=== PATIENT | male | born 1980 | race Two or more races ===

== ENCOUNTER → 2018-12-13 | Outpatient (CLI) | payer SELFPAY | END | disposition home or self-care (01) | LOC: Rad HDHVI 12:51 | PROVIDERS: ATTEND Internal Medicine Cardiovascular Disease | DX: I51.7 Cardiomegaly (principal) | CPT/HCPCS: 71046 ==

== ENCOUNTER 2019-06-19 08:08 | Inpatient (IN) | payer MEDICAID ==
[~2019-06-19] VITALS: Ht 182.9 cm; Wt 117.6 kg
[~2019-06-19 08:08] MED LIST: ALPR0.5T PO; ATE50T PO; ESOM20CA PO; RIVA20TA PO
[2019-06-19] MEDS ORDERED: ceFAZolin 1GM/50ML 50 ML IV ONE (08:40)
[2019-06-19] MEDS ORDERED: LIDOCAINE 2%HCL (LOCAL ANESTH.) INJ 20ML MDV ONE ×3 (12:46→13:46)
[2019-06-19] MEDS ORDERED: VANCOMYCIN HCL 1000 MG VL ONE (13:06)
[2019-06-19] MEDS ORDERED: MIDAZOLAM HCL 1MG/1ML-2 ML VIAL ONE ×2 (13:11→14:19)
[2019-06-19] MEDS ORDERED: fentaNYL CITRATE 100 MCG/2 ML VL ONE (13:11)
[2019-06-19] MEDS ORDERED: diphenhdrAMINE HCL 50 MG/1 ML VL ONE (13:25)
[2019-06-19] MEDS ORDERED: methylPREDNISolone SOD SUCC 125 MG/2 ML VL ONE (13:25)
[2019-06-19] MEDS ORDERED: FAMOTIDINE (10MG/ML) 2ML VL IV ONE (13:25)
[2019-06-19] MEDS ORDERED: VANCOMYCIN 1GM/250ML 250 ML IV ONE (14:20)
[2019-06-19] MEDS ORDERED: HYDROcodone-ACET 5/325MG TAB PO PRN (15:30)
[2019-06-19] MEDS ORDERED: ALPRAZolam 0.5 MG TAB PO PRN (15:30)
[2019-06-19] MEDS ORDERED: MORPHINE SULF INJ 2 MG/ML SYRINGE 1ML IV PRN (15:30)
[2019-06-19] MEDS ORDERED: NITROGLYCERIN 0.4 MG SL TAB SL PRN (15:30)
[2019-06-19] MEDS ORDERED: ACETAMINOPHEN 325 MG TAB PO PRN (15:30)
[2019-06-19 17:30] VITALS: BP 144/77
--- NOTE | 2019-06-19 17:30 | NUR ---
Telemetry admit from [facility] admitted to Telemetry unit after SBAR received. Patient oriented to DANYEL SALAMANCA, primary RN, unit, room, bed, and unit policies regarding patient care and visiting hours. Patient now on continuous telemetry monitoring, tele box # [id number] and telemetry reading on arrival to unit is . Patient placed on bedside oxygen, weighed by bed scale and encouraged to call if they need something. All questions and concerns addressed, patient verbalized understanding.
--- NOTE | 2019-06-19 20:00 | NUR ---
Opening Shift Note Assumed care of patient, awake and alert. No S/S of distress/SOB or pain. Instructed on POC and to call for assist PRN, will continue to monitor for changes Q1hr and PRN.
[2019-06-19] MEDS: ceFAZolin 1GM/50ML 50 ML IV SCH (21:35)
[2019-06-19 22:00] VITALS: BP 107/65
[2019-06-19] MEDS ORDERED: ATENOLOL 50 MG TAB PO SCH (22:00)
[2019-06-20 05:00] VITALS: BP 139/70
[2019-06-20] MEDS: ceFAZolin 1GM/50ML 50 ML IV SCH (05:34)
--- NOTE | 2019-06-20 07:18 | NUR ---
Report given to Ramu Partida, patient is resting no distress.
--- NOTE | 2019-06-20 07:58 | NUR ---
PATIENT ROUNDS PATIENT IN BED, NO DISTRESS NOTED, BED IN LOWEST POSITION, SIDE RAIL UP X2 CALL LIGHT WITHIN REACH. WILL CONTINUE TO MONITOR AND INITIATE PLAN OF CARE. STUDENT ELECTRONIC INSTALLER SASCHA ASSISTING IN PATIENT CARE.
[2019-06-20 09:00] VITALS: BP 131/66
[2019-06-20] MEDS ORDERED: PANTOPRAZOLE 40 MG TAB PO SCH (10:00)
[2019-06-20] MEDS ORDERED: ATENOLOL 25 MG TAB PO SCH (10:00)
[2019-06-20 13:00] VITALS: BP 140/64
[2019-06-20 14:39] VITALS: BP 140/64
--- NOTE | 2019-06-20 15:50 | NUR ---
IV removal IV DC'd with clean sterile technique, catheter fully intact. Pressure dressing applied to site. Patient tolerated well. NOTE: TELE CLEANED AND RETURNED TO DOCTOR OF PODIATRY
--- NOTE | 2019-06-20 16:00 | NUR ---
Discharge instructions given as ordered. Encourage to follow up with PMD as instructed. All questions and concerns addressed. Patient verbalized understanding. Medication reconciliation form completed and copy given to patient. IV removed with catheter intact, pressure dressing applied. Telemetry unit returned to ICU. Patient ambulated to vehicle refused use of wheelchair with all personal belongings, accompanied by family member. No distress noted at time of departure.
== END 2019-06-20 16:00 | disposition home or self-care (01) | DRG 161 ==
LOC: CATH 08:08 → TELE-DOU 08:09 → TELE-EAST 18:39
PROVIDERS: ADMIT Internal Medicine Cardiovascular Disease; ATTEND Internal Medicine Cardiovascular Disease
PROC: 0JPT0PZ Removal of Cardiac Rhythm Related Device from Trunk Subcutaneous Tissue and Fascia, Open Approach (ICD-10-PCS; principal; 2019-06-19)
PROC: 02HK3KZ Insertion of Defibrillator Lead into Right Ventricle, Percutaneous Approach (ICD-10-PCS; 2019-06-19)
PROC: 0JH608Z Insertion of Defibrillator Generator into Chest Subcutaneous Tissue and Fascia, Open Approach (ICD-10-PCS; 2019-06-19)
PROC: 02PA3MZ Removal of Cardiac Lead from Heart, Percutaneous Approach (ICD-10-PCS; 2019-06-19)
DX: I47.2 Ventricular tachycardia (principal); I11.0 Hypertensive heart disease with heart failure; I50.32 Chronic diastolic (congestive) heart failure; Z86.74 Personal history of sudden cardiac arrest; E66.9 Obesity, unspecified; I42.2 Other hypertrophic cardiomyopathy; Z86.79 Personal history of other diseases of the circulatory system; Z95.810 Presence of automatic (implantable) cardiac defibrillator; Z82.49 Family history of ischemic heart disease and other diseases of the circulatory system; Z91.013 Allergy to seafood; Z68.35 Body mass index [BMI] 35.0-35.9, adult; Z79.899 Other long term (current) drug therapy
CPT/HCPCS: 71045; 93005; G0378; J0690; J2250; J3490

== ENCOUNTER → 2019-12-12 | Outpatient (CLI) | payer MEDICAID ==
[~2019-12-12] MED LIST changes: +POTASSIUM CHL 20 Meq TABLET PO ONE
[2019-12-12 15:07] LABS: Basophils # (auto) 0 uL; Basophils % (auto) 0.8 % (0.0-2.0); Eosinophils # (auto) 0.2 uL; Eosinophils % (auto) 3.6 % (0.0-7.0); Hemoglobin 13.9 g/dL (13.5-17.5); Lymphocytes # (auto) 2.1 uL; Lymphocytes % (auto) 35.5 % (10.0-50.0); Mean Corpuscular Hemoglobin 29.3 pg (28.0-32.0); Mean Corpuscular Hgb Conc. 33.9 g/dL (32.0-36.0); Mean Corpuscular Volume 86.4 fL (80.0-100.0); Monocytes # (auto) 0.5 uL; Neutrophils # (auto) 3.1 uL; Neutrophils % (auto) 52.1 % (37.0-80.0); Nucleated Red Blood Cells % 0.1 %; Platelet Count (auto) 165 10^3/uL (140-450); Red Blood Cells 4.75 10^6/uL (4.5-5.90); Red Cell Distribution Width 15.3 % (11.8-14.3); White Blood Cell 5.9 10^3/uL (4.4-10.8)
[2019-12-12 15:27] LABS: Calcium 9.2 mg/dL (8.5-10.1); Magnesium 2.1 mg/dL (1.6-2.6); Potassium 3.4 mmol/L (3.5-5.1)
[2019-12-12 15:29] LABS: BUN/Creatinine Ratio 18.2
[2019-12-12 16:35] VITALS: BP 122/70
== END | disposition home or self-care (01) ==
LOC: CHF HDHVI 14:38
PROVIDERS: ATTEND Internal Medicine Cardiovascular Disease
DX: I20.9 Angina pectoris, unspecified (principal); R07.9 Chest pain, unspecified; R00.2 Palpitations; Z79.899 Other long term (current) drug therapy
CPT/HCPCS: 36415; 80048; 83036; 83735; 83880; 84484; 85025; 93005; G0463

== ENCOUNTER → 2021-09-07 | Outpatient (CLI) | payer MEDICAID ==
[~2021-09-07] VITALS: Ht 182.9 cm; Wt 122.5 kg
[~2021-09-07] MED LIST changes: +CEPH-322 PO; -POTASSIUM CHL 20 Meq TABLET PO ONE
[2021-09-07 09:15] VITALS: BP 111/68
[2021-09-07 09:33] VITALS: BP 111/68
[2021-09-07 11:32] LABS: Basophils # (auto) 0.1 10 ^3/uL (0-0.2); Basophils % (auto) 1.6 % (0.0-2.0); Eosinophils # (auto) 0.2 10 ^3/uL (0-0.8); Eosinophils % (auto) 2.6 % (0.0-7.0); Hematocrit 44.4 % (41.0-53.0); Hemoglobin 14.5 g/dL (13.5-17.5); Lymphocytes # (auto) 1.8 10 ^3/uL (0.4-5.4); Lymphocytes % (auto) 28.3 % (10.0-50.0); Mean Corpuscular Hemoglobin 27.6 pg (28.0-32.0); Mean Corpuscular Hgb Conc. 32.6 g/dL (32.0-36.0); Mean Corpuscular Volume 84.8 fL (80.0-100.0); Monocytes # (auto) 0.6 10 ^3/uL (0-1.3); Monocytes % (auto) 9.7 % (0.0-12.0); Neutrophils # (auto) 3.6 10 ^3/uL (1.6-8.6); Neutrophils % (auto) 57.8 % (37.0-80.0); Nucleated Red Blood Cells % 0.2 %; Red Blood Cells 5.23 10^6/uL (4.5-5.90); Red Cell Distribution Width 15.1 % (11.8-14.3); White Blood Cell 6.2 10^3/uL (4.4-10.8)
[2021-09-07 11:45] LABS: INR 1.1 (0.9-1.15); Partial Thromboplastin Time 29.9 sec (23.6-33.0)
[2021-09-07 12:07] LABS: Potassium 4.4 mmol/L (3.5-5.1)
[2021-09-07 12:09] LABS: BUN/Creatinine Ratio 20.4
== END | disposition home or self-care (01) ==
LOC: CHF HDHVI 09:00
PROVIDERS: ATTEND Internal Medicine Cardiovascular Disease
DX: Z01.812 Encounter for preprocedural laboratory examination (principal); R94.31 Abnormal electrocardiogram [ECG] [EKG]; I44.7 Left bundle-branch block, unspecified; Z79.01 Long term (current) use of anticoagulants
CPT/HCPCS: 36415; 80048; 85025; 85610; 85730; 93005; G0463

== ENCOUNTER 2021-09-13 10:55 | Inpatient (IN) | payer MEDICAID ==
[2021-09-13] VITALS (10 sets, daily range): BP systolic 98–117; BP diastolic 61–77
[~2021-09-13] VITALS: Ht 182.9 cm; Wt 122.8 kg
[~2021-09-13 10:55] MED LIST changes: -ALPR0.5T PO; -ESOM20CA PO
[2021-09-13] MEDS ORDERED: diphenhdrAMINE HCL 50 MG/1 ML VL ONE (12:38)
[2021-09-13] MEDS ORDERED: methylPREDNISolone SOD SUCC 125 MG/2 ML VL ONE (12:38)
[2021-09-13] MEDS ORDERED: MIDAZOLAM HCL 2MG/2ML 2ml VIAL (1mg/ml) ONE (12:39)
[2021-09-13] MEDS ORDERED: fentaNYL CITRATE 100 MCG/2 ML VL ONE (12:39)
[2021-09-13] MEDS ORDERED: VANCOMYCIN 1GM/250ML 250 ML IV ONE (12:39)
[2021-09-13] MEDS ORDERED: VANCOMYCIN HCL 1000 MG VL ONE ×2 (12:40→13:51)
[2021-09-13] MEDS ORDERED: FAMOTIDINE (10MG/ML) 2ML VL IV ONE (12:40)
[2021-09-13] MEDS ORDERED: LIDOCAINE 2%HCL (LOCAL ANESTH.) INJ 20ML MDV ONE (12:46)
[2021-09-13] MEDS ORDERED: ceFAZolin 1GM VL ONE (13:51)
[2021-09-13] MEDS ORDERED: ACETAMINOPHEN 500 MG TAB PO PRN (14:30)
[2021-09-13] MEDS ORDERED: MORPHINE SULFATE INJECTION 2 MG/ML SYRG IV PRN (14:30)
[2021-09-13] MEDS ORDERED: NITROGLYCERIN 0.4 MG SL TAB SL PRN (14:30)
[2021-09-13] MEDS ORDERED: ONDANSETRON HCL 4 MG/2 ML VIAL IV PRN (14:30)
[2021-09-13] MEDS ORDERED: ceFAZolin 1GM/50ML 50 ML IV SCH (15:00)
[2021-09-13] MEDS: SODIUM CHLORIDE 0.9% 1,000 ML IV SCH (15:14)
[2021-09-13] MEDS: ceFAZolin 1GM/50ML 50 ML IV SCH ×2 (17:38→22:49)
[2021-09-14] MEDS ORDERED: VANCOMYCIN 1GM/250ML 250 ML IV ONE (00:01)
[2021-09-14] MEDS: SODIUM CHLORIDE 0.9% 1,000 ML IV SCH ×2 (00:45→12:29)
[2021-09-14 05:00] VITALS: BP 121/56
[2021-09-14] MEDS: ceFAZolin 1GM/50ML 50 ML IV SCH (06:42)
[2021-09-14 09:00] VITALS: BP 104/69
[2021-09-14 13:00] VITALS: BP 101/55
[2021-09-14] MEDS ORDERED: VANCOMYCIN 1GM/250ML 250 ML IV SCH (14:00)
[2021-09-14 17:00] VITALS: BP 101/52
[2021-09-14 18:57] VITALS: BP 101/52
== END 2021-09-14 20:14 | disposition home or self-care (01) | DRG 180 ==
LOC: CATH 10:55 → TELE 14:16 → TELE-WESTW 17:14
PROVIDERS: ADMIT Internal Medicine Cardiovascular Disease; ATTEND Internal Medicine Cardiovascular Disease
PROC: 0JPT0PZ Removal of Cardiac Rhythm Related Device from Trunk Subcutaneous Tissue and Fascia, Open Approach (ICD-10-PCS; principal; 2021-09-13)
DX: T82.7XXA Infection and inflammatory reaction due to other cardiac and vascular devices, implants and grafts, initial encounter (principal); I42.2 Other hypertrophic cardiomyopathy; Y83.1 Surgical operation with implant of artificial internal device as the cause of abnormal reaction of the patient, or of later complication, without mention of misadventure at the time of the procedure; Z20.822 Contact with and (suspected) exposure to COVID-19; Z91.013 Allergy to seafood
CPT/HCPCS: 33241; 33244; 99152; 99153; G0378; J0690; J2250; J3490

== ENCOUNTER → 2021-09-21 | Outpatient (CLI) | payer MEDICAID | END | disposition home or self-care (01) | LOC: Rad HDHVI 13:40 | PROVIDERS: ATTEND Internal Medicine Cardiovascular Disease | DX: I42.2 Other hypertrophic cardiomyopathy (principal); I05.0 Rheumatic mitral stenosis; I35.0 Nonrheumatic aortic (valve) stenosis | CPT/HCPCS: 93306 ==

== ENCOUNTER → 2021-10-18 | Outpatient (CLI) | payer MEDICAID ==
[2021-10-18 15:23] LABS: Basophils # (auto) 0 10 ^3/uL (0-0.2); Basophils % (auto) 0.8 % (0.0-2.0); Eosinophils # (auto) 0.3 10 ^3/uL (0-0.8); Eosinophils % (auto) 4.8 % (0.0-7.0); Hematocrit 42.5 % (41.0-53.0); Lymphocytes # (auto) 1.3 10 ^3/uL (0.4-5.4); Lymphocytes % (auto) 22.9 % (10.0-50.0); Mean Corpuscular Hemoglobin 27.6 pg (28.0-32.0); Mean Corpuscular Hgb Conc. 32.9 g/dL (32.0-36.0); Mean Corpuscular Volume 83.8 fL (80.0-100.0); Monocytes # (auto) 0.7 10 ^3/uL (0-1.3); Monocytes % (auto) 12.2 % (0.0-12.0); Neutrophils # (auto) 3.4 10 ^3/uL (1.6-8.6); Neutrophils % (auto) 59.3 % (37.0-80.0); Red Blood Cells 5.08 10^6/uL (4.5-5.90); Red Cell Distribution Width 15.1 % (11.8-14.3); White Blood Cell 5.8 10^3/uL (4.4-10.8)
[2021-10-18 15:24] LABS: Urine Blood Negative /uL (Negative); Urine Specific Gravity 1.027 (1.001-1.035)
[2021-10-18 15:29] LABS: Calcium 9.5 mg/dL (8.5-10.1); Magnesium 2.5 mg/dL (1.6-2.6); Potassium 4.4 mmol/L (3.5-5.1)
[2021-10-18 15:35] LABS: INR 1.32 (0.9-1.15)
[2021-10-18 15:36] LABS: Albumin 4.2 g/dL (3.4-5.0); BUN/Creatinine Ratio 18.1; Bilirubin, Total 1.4 mg/dL (0.2-1.0); Phosphorus 3.5 mg/dL (2.5-4.90); Total Protein 8.6 g/dL (6.4-8.2)
== END | disposition home or self-care (01) ==
LOC: LAB 14:01
PROVIDERS: ATTEND Internal Medicine Cardiovascular Disease
DX: Z01.812 Encounter for preprocedural laboratory examination (principal)
CPT/HCPCS: 36415; 80053; 80061; 81003; 83036; 83735; 84100; 85025; 85610; 85730

== ENCOUNTER → 2021-10-19 | Outpatient (CLI) | payer MEDICAID | END | disposition home or self-care (01) | LOC: Rad HDHVI 14:09 | PROVIDERS: ATTEND Internal Medicine Cardiovascular Disease | DX: Z01.811 Encounter for preprocedural respiratory examination (principal); I51.7 Cardiomegaly; Z95.0 Presence of cardiac pacemaker | CPT/HCPCS: 71046 ==

== ENCOUNTER → 2021-11-22 | Outpatient (CLI) | payer MEDICAID | END | disposition home or self-care (01) | LOC: Rad HDHVI 11:57 | PROVIDERS: ATTEND Internal Medicine Cardiovascular Disease | DX: I51.7 Cardiomegaly (principal) | CPT/HCPCS: 71046 ==

== ENCOUNTER → 2022-05-29 | Outpatient (CLI) | payer MEDICAID | END | disposition home or self-care (01) | LOC: Rad HDHVI 10:24 | PROVIDERS: ATTEND Internal Medicine Cardiovascular Disease | DX: I11.9 Hypertensive heart disease without heart failure (principal); R07.89 Other chest pain | CPT/HCPCS: 93306 ==

== ENCOUNTER 2022-06-09 12:00 | Emergency (ER) | payer MEDICAID ==
[~2022-06-09] VITALS: Ht 182.9 cm; Wt 123.6 kg
[2022-06-09 12:02] VITALS: BP 132/79
[2022-06-09 13:05] LABS: Basophils # (auto) 0.1 10 ^3/uL (0-0.2); Basophils % (auto) 0.8 % (0.0-2.0); Eosinophils # (auto) 0.1 10 ^3/uL (0-0.8); Eosinophils % (auto) 1.6 % (0.0-7.0); Hematocrit 41.2 % (41.0-53.0); Hemoglobin 13.5 g/dL (13.5-17.5); Lymphocytes # (auto) 1.3 10 ^3/uL (0.4-5.4); Lymphocytes % (auto) 18.6 % (10.0-50.0); Mean Corpuscular Hemoglobin 27.1 pg (28.0-32.0); Mean Corpuscular Hgb Conc. 32.7 g/dL (32.0-36.0); Mean Corpuscular Volume 82.9 fL (80.0-100.0); Monocytes # (auto) 0.5 10 ^3/uL (0-1.3); Monocytes % (auto) 7.6 % (0.0-12.0); Neutrophils # (auto) 4.9 10 ^3/uL (1.6-8.6); Neutrophils % (auto) 71.4 % (37.0-80.0); Nucleated Red Blood Cells % 0.1 %; Red Blood Cells 4.97 10^6/uL (4.5-5.90); Red Cell Distribution Width 15.2 % (11.8-14.3); White Blood Cell 6.9 10^3/uL (4.4-10.8)
[2022-06-09 13:25] LABS: INR 1.41 (0.9-1.15); Partial Thromboplastin Time 37.5 sec (24.6-33.4)
[2022-06-09 13:39] LABS: Albumin 4.3 g/dL (3.4-5.0); Calcium 9.5 mg/dL (8.5-10.1); Magnesium 2.2 mg/dL (1.6-2.6); Potassium 3.6 mmol/L (3.5-5.1)
[2022-06-09 13:42] LABS: BUN/Creatinine Ratio 16.5; Bilirubin, Total 1.4 mg/dL (0.2-1.0); Total Protein 8.5 g/dL (6.4-8.2)
[2022-06-09] MEDS ORDERED: ASPirin 325 MG TAB PO ONE (15:45)
== END 2022-06-09 18:18 | disposition left against medical advice (07) ==
LOC: ER 12:05
DX: R77.8 Other specified abnormalities of plasma proteins (principal); I42.1 Obstructive hypertrophic cardiomyopathy; F41.9 Anxiety disorder, unspecified; Z45.02 Encounter for adjustment and management of automatic implantable cardiac defibrillator
CPT/HCPCS: 36415; 71045; 80053; 83735; 83880; 84484; 85025; 85610; 85730; 93005

== ENCOUNTER → 2022-06-13 | Outpatient (CLI) | payer MEDICAID ==
[~2022-06-13] MED LIST changes: +MAGNESIUM OXIDE 400 MG TAB ONE; +MAGNESIUM OXIDE 400 MG TAB PO ONE; +POTASSIUM CHL 20 Meq TABLET PO ONE
[2022-06-13 10:58] VITALS: BP 120/77
[2022-06-13 11:15] VITALS: BP 110/64
[2022-06-13 12:33] LABS: BUN/Creatinine Ratio 17.4; Calcium 9.1 mg/dL (8.5-10.1); Magnesium 2.3 mg/dL (1.6-2.6); Potassium 3.7 mmol/L (3.5-5.1)
[2022-06-13 13:10] VITALS: BP 103/68
== END | disposition home or self-care (01) ==
LOC: CHF HDHVI 11:13
PROVIDERS: ATTEND Internal Medicine Cardiovascular Disease
DX: I44.7 Left bundle-branch block, unspecified (principal); I48.91 Unspecified atrial fibrillation; R94.31 Abnormal electrocardiogram [ECG] [EKG]; I42.1 Obstructive hypertrophic cardiomyopathy; I10 Essential (primary) hypertension; E78.5 Hyperlipidemia, unspecified; I51.7 Cardiomegaly
CPT/HCPCS: 36415; 80048; 83735; 84484; 93005; 93306; G0463

== ENCOUNTER → 2022-06-16 | Outpatient (CLI) | payer MEDICAID ==
[~2022-06-16] MED LIST changes: -MAGNESIUM OXIDE 400 MG TAB ONE; -MAGNESIUM OXIDE 400 MG TAB PO ONE; -POTASSIUM CHL 20 Meq TABLET PO ONE
== END | disposition home or self-care (01) ==
LOC: CHF HDHVI 09:07
PROVIDERS: ATTEND Internal Medicine Cardiovascular Disease
DX: I20.9 Angina pectoris, unspecified (principal)
CPT/HCPCS: 36415; 84484

== ENCOUNTER → 2022-06-27 | Outpatient (CLI) | payer MEDICAID ==
[~2022-06-27] MED LIST changes: +ALPR0.25 PO; +ATEN-60 PO; +ESOM5GRA PO; +SUCR1TAB22 PO
== END | disposition home or self-care (01) ==
LOC: Rad HDHVI 10:34
PROVIDERS: ATTEND Internal Medicine Cardiovascular Disease
DX: R07.89 Other chest pain (principal); R00.2 Palpitations
CPT/HCPCS: 93306

== ENCOUNTER → 2022-07-14 | Outpatient (CLI) | payer MEDICAID ==
[2022-07-14 10:05] VITALS: BP 104/68
[2022-07-14 10:10] VITALS: BP 104/68
[2022-07-14 12:00] LABS: Basophils # (auto) 0 10 ^3/uL (0-0.2); Eosinophils # (auto) 0.2 10 ^3/uL (0-0.8); Eosinophils % (auto) 3.9 % (0.0-7.0); Hematocrit 42.9 % (41.0-53.0); Hemoglobin 13.8 g/dL (13.5-17.5); Lymphocytes # (auto) 1.4 10 ^3/uL (0.4-5.4); Lymphocytes % (auto) 27.8 % (10.0-50.0); Mean Corpuscular Hemoglobin 27.3 pg (28.0-32.0); Mean Corpuscular Hgb Conc. 32.1 g/dL (32.0-36.0); Mean Corpuscular Volume 85.1 fL (80.0-100.0); Monocytes # (auto) 0.4 10 ^3/uL (0-1.3); Monocytes % (auto) 8.7 % (0.0-12.0); Neutrophils # (auto) 2.9 10 ^3/uL (1.6-8.6); Neutrophils % (auto) 58.6 % (37.0-80.0); Nucleated Red Blood Cells % 0.1 %; Red Blood Cells 5.04 10^6/uL (4.5-5.90); Red Cell Distribution Width 14.3 % (11.8-14.3); White Blood Cell 4.9 10^3/uL (4.4-10.8)
[2022-07-14 12:15] LABS: Calcium 8.9 mg/dL (8.5-10.1); Potassium 4.1 mmol/L (3.5-5.1)
[2022-07-14 12:17] LABS: BUN/Creatinine Ratio 21.1
[2022-07-14 12:18] LABS: INR 1.4 (0.9-1.15); Partial Thromboplastin Time 43.7 sec (24.6-33.4)
== END | disposition home or self-care (01) ==
LOC: Rad HDHVI 09:53
PROVIDERS: ATTEND Internal Medicine Cardiovascular Disease
DX: Z01.818 Encounter for other preprocedural examination (principal); R79.1 Abnormal coagulation profile; I48.91 Unspecified atrial fibrillation; Z95.0 Presence of cardiac pacemaker
CPT/HCPCS: 36415; 71046; 80048; 85025; 85610; 85730; G0463

== ENCOUNTER 2022-07-18 10:57 | Day surgery (SDC) | payer MEDICAID ==
[2022-07-18] VITALS (7 sets, daily range): BP systolic 99–116; BP diastolic 65–75
[2022-07-18] MEDS ORDERED: methylPREDNISolone SOD SUCC 125 MG/2 ML VL ONE (13:17)
[2022-07-18] MEDS ORDERED: ANGIOMAX 250 MG VIAL IV ONE (13:17)
[2022-07-18] MEDS ORDERED: fentaNYL CITRATE 100 MCG/2 ML VL ONE (13:17)
[2022-07-18] MEDS ORDERED: SODIUM CHL 0.9% 0 ML ONE (13:18)
[2022-07-18] MEDS ORDERED: MIDAZOLAM HCL 2MG/2ML 2ml VIAL (1mg/ml) ONE (13:18)
[2022-07-18] MEDS ORDERED: IOHEXOL 350 MG/ML 100ML IJ ONE (13:20)
== END 2022-07-18 15:50 | disposition home or self-care (01) ==
LOC: CATH 10:57
PROVIDERS: ATTEND Internal Medicine Cardiovascular Disease
DX: R07.89 Other chest pain (principal); I42.2 Other hypertrophic cardiomyopathy; I48.0 Paroxysmal atrial fibrillation; G47.30 Sleep apnea, unspecified; Z95.810 Presence of automatic (implantable) cardiac defibrillator; Z20.822 Contact with and (suspected) exposure to COVID-19
CPT/HCPCS: 93458; C1760; C1894; J2250; J2930; J3010; Q9967; U0003; 99152

== ENCOUNTER → 2022-07-31 | Outpatient (CLI) | payer MEDICAID ==
[~2022-07-31] MED LIST changes: -ATE50T PO; -CEPH-322 PO
== END | disposition home or self-care (01) ==
LOC: Rad HDHVI 09:48
PROVIDERS: ATTEND Internal Medicine Cardiovascular Disease
DX: I34.0 Nonrheumatic mitral (valve) insufficiency (principal); I11.9 Hypertensive heart disease without heart failure; Z95.0 Presence of cardiac pacemaker
CPT/HCPCS: 93306

== ENCOUNTER → 2022-08-21 | Outpatient (CLI) | payer MEDICAID ==
[~2022-08-21] MED LIST changes: +READI-CAT 2 (BARIUM SULF)(VANILLA SMOOTHIE) 450ML ONE
== END | disposition home or self-care (01) ==
LOC: Rad HDHVI 09:19
PROVIDERS: ATTEND Internal Medicine Cardiovascular Disease
DX: K76.9 Liver disease, unspecified (principal); R10.9 Unspecified abdominal pain
CPT/HCPCS: 74176

== ENCOUNTER → 2022-08-31 | Outpatient (CLI) | payer MEDICAID ==
[~2022-08-31] MED LIST changes: -READI-CAT 2 (BARIUM SULF)(VANILLA SMOOTHIE) 450ML ONE
== END | disposition home or self-care (01) ==
LOC: Rad HDHVI 08:42
PROVIDERS: ATTEND Internal Medicine Cardiovascular Disease
DX: I11.9 Hypertensive heart disease without heart failure (principal); R06.02 Shortness of breath
CPT/HCPCS: 93306

== ENCOUNTER → 2022-11-14 | Outpatient (CLI) | payer MEDICAID | END | disposition home or self-care (01) | LOC: Rad HDHVI 14:26 | PROVIDERS: ATTEND Internal Medicine Cardiovascular Disease | DX: I11.9 Hypertensive heart disease without heart failure (principal); I34.0 Nonrheumatic mitral (valve) insufficiency; R06.02 Shortness of breath | CPT/HCPCS: 93306 ==

== ENCOUNTER → 2023-01-11 | Outpatient (CLI) | payer MEDICAID ==
[2023-01-11 11:40] VITALS: BP 113/71
== END | disposition home or self-care (01) ==
LOC: Rad HDHVI 10:27
PROVIDERS: ATTEND Internal Medicine Cardiovascular Disease
DX: I44.7 Left bundle-branch block, unspecified (principal); R94.31 Abnormal electrocardiogram [ECG] [EKG]; I34.0 Nonrheumatic mitral (valve) insufficiency; I51.7 Cardiomegaly; R00.2 Palpitations; R06.02 Shortness of breath; I42.1 Obstructive hypertrophic cardiomyopathy
CPT/HCPCS: 93005; 93306; G0463

== ENCOUNTER → 2023-02-15 | Outpatient (CLI) | payer MEDICAID | END | disposition home or self-care (01) | LOC: Rad HDHVI 10:58 | PROVIDERS: ATTEND Internal Medicine Cardiovascular Disease | DX: I10 Essential (primary) hypertension (principal); R06.02 Shortness of breath | CPT/HCPCS: 93306 ==

== ENCOUNTER → 2024-04-02 | Outpatient (CLI) | payer MEDICAID ==
[~2024-04-02] MED LIST changes: +IOHEXOL 350 MG/ML 100ML IJ ONE; -SUCR1TAB22 PO; +SUCR1TAB31 PO
[2024-04-02 10:30] VITALS: BP 106/67; PULSE 63; RESP 16; O2SAT 97
[2024-04-02] MEDS: diphenhdrAMINE HCL 50 MG/1 ML VL IV ONE (10:30)
[2024-04-02] MEDS: methylPREDNISolone SOD SUCC 125 MG/2 ML VL IV ONE (10:30)
[2024-04-02] MEDS: methylPREDNISolone SOD SUCC 125 MG/2 ML VL ONE (10:42)
[2024-04-02] MEDS: diphenhdrAMINE HCL 50 MG/1 ML VL ONE (10:43)
[2024-04-02 12:02] VITALS: BP 112/74; PULSE 59; RESP 16; O2SAT 97
== END | disposition home or self-care (01) ==
LOC: Rad HDHVI 09:54
PROVIDERS: ATTEND Internal Medicine Cardiovascular Disease
DX: M79.601 Pain in right arm (principal); I10 Essential (primary) hypertension; I48.0 Paroxysmal atrial fibrillation; E78.5 Hyperlipidemia, unspecified; F41.9 Anxiety disorder, unspecified; Z95.0 Presence of cardiac pacemaker
CPT/HCPCS: 93971; 96374; 96375; G0463; J1200; J2919; Q9967

== ENCOUNTER → 2025-06-02 | Outpatient (CLI) | payer MEDICAID ==
[~2025-06-02] MED LIST changes: -IOHEXOL 350 MG/ML 100ML IJ ONE
== END | disposition home or self-care (01) ==
LOC: Rad HDHVI 10:02
PROVIDERS: ATTEND Internal Medicine Cardiovascular Disease
DX: I34.0 Nonrheumatic mitral (valve) insufficiency (principal); I11.9 Hypertensive heart disease without heart failure; I42.1 Obstructive hypertrophic cardiomyopathy
CPT/HCPCS: 93306

== ENCOUNTER 2025-06-03 08:59 | Outpatient (CLI) | payer MEDICAID ==
[2025-06-03 09:04] VITALS: BP 129/84; PULSE 110; RESP 16; O2SAT 93
[2025-06-03] MEDS ORDERED: READI-CAT 2 (BARIUM SULF)(VANILLA SMOOTHIE) 450ML ONE (09:08)
[2025-06-03] MEDS ORDERED: IOHEXOL 350 MG/ML 100ML IJ ONE (09:09)
[2025-06-03] MEDS: diphenhdrAMINE HCL 50 MG/1 ML VL ONE (09:32)
[2025-06-03] MEDS: methylPREDNISolone SOD SUCC 125 MG/2 ML VL ONE (09:32)
[2025-06-03] MEDS: diphenhdrAMINE HCL 50 MG/1 ML VL IV ONE (09:57)
[2025-06-03] MEDS: methylPREDNISolone SOD SUCC 125 MG/2 ML VL IV ONE (09:58)
[2025-06-03 10:26] VITALS: BP 120/83; PULSE 100; RESP 16; O2SAT 93
--- NOTE | 2025-06-03 10:52 | DVH ---
CT CT ABD PELVIS W CON-ORAL IV INDICATION: : 45 old Male ABD PAIN EXAM DATE: 06/03/2025 09:58 AM COMPARISON: None RADIATION DOSE: CTDIvol: 28.33 mGy, DLP: 1571.74 mGy*cm PROCEDURE: Helical CT images were obtained of the abdomen and pelvis with IV contrast Sagittal and co angeli reconstructions are provided. ORAL CONTRAST: yes ADDITIONAL IMAGES / REFORMATS: None All CT sca ns at this medical facility are performed using dose modulation techniques as appropriate to a perfor med exam including the following: Automated exposure control was utilized; adjustment of the MA and/o r KV according to patient size; and use of iterative reconstruction technique. FINDINGS: LUNG BASE: Mild bibasilar atelectasis. LIVER: Normal. GALLBLADDER AND BILIARY TREE: No calcified gallstones. Normal caliber wall. No intra- or extrahepatic biliary ductal dilation. PANCREAS: Normal. SPLEEN: Normal. BOWEL: Normal. Normal appendix. ADRENALS: Normal. KIDNEYS AND URETER: Normal. BLADDER: Normal. REPRODUCTIVE ORGANS: Normal. LYMPH NODES:No lymphadenopathy. PERITONEUM: No ascites or free air. No other fluid collection. VESSELS: Scattered atherosclerotic calcifications are noted. RETROPERITONEUM: Normal. ABDOMINAL WALL: Normal. BONES: Scattered osseous degenerative changes are noted. IMPRESSION: No acute intraabdominal abnormality.
== END 2025-06-03 17:00 | disposition home or self-care (01) ==
LOC: Rad HDHVI 08:59
PROVIDERS: ATTEND Internal Medicine Cardiovascular Disease
DX: K80.20 Calculus of gallbladder without cholecystitis without obstruction (principal); R14.0 Abdominal distension (gaseous); I11.9 Hypertensive heart disease without heart failure; I34.0 Nonrheumatic mitral (valve) insufficiency; I42.1 Obstructive hypertrophic cardiomyopathy; F41.9 Anxiety disorder, unspecified; E78.5 Hyperlipidemia, unspecified; I48.0 Paroxysmal atrial fibrillation; Z95.0 Presence of cardiac pacemaker; Z29.9 Encounter for prophylactic measures, unspecified; Z79.899 Other long term (current) drug therapy
CPT/HCPCS: 74177; 96374; 96375; G0463; J1200; J2919; Q9967

== ENCOUNTER 2025-06-26 09:09 | Outpatient (CLI) | payer MEDICAID ==
[~2025-06-26] VITALS: Ht 182.9 cm; Wt 131.5 kg
[2025-06-26] MEDS ORDERED: ADENOSINE 90 MG/30 ML INJ IV ONE (11:19)
[2025-06-26] MEDS ORDERED: ADENOSINE 110 MG in GIVE UN-DILUTED 0 ML IV ONE (11:45)
== END 2025-06-26 17:00 | disposition home or self-care (01) ==
LOC: Rad HDHVI 09:09
PROVIDERS: ATTEND Internal Medicine Cardiovascular Disease
DX: I49.3 Ventricular premature depolarization (principal); I48.4 Atypical atrial flutter; I44.7 Left bundle-branch block, unspecified; R07.89 Other chest pain; I11.0 Hypertensive heart disease with heart failure; I50.23 Acute on chronic systolic (congestive) heart failure; R94.31 Abnormal electrocardiogram [ECG] [EKG]; I42.0 Dilated cardiomyopathy; I48.91 Unspecified atrial fibrillation; I42.1 Obstructive hypertrophic cardiomyopathy; E78.00 Pure hypercholesterolemia, unspecified; R00.2 Palpitations; Z95.810 Presence of automatic (implantable) cardiac defibrillator; Z82.49 Family history of ischemic heart disease and other diseases of the circulatory system
CPT/HCPCS: 78452; 93017; A9500; J0153

== ENCOUNTER 2025-08-31 10:38 | Outpatient (CLI) | payer MEDICAID ==
[2025-08-31 11:13] LABS: Hematocrit 43.3 % (41.0-53.0); Hemoglobin 14.4 g/dL (13.5-17.5); Mean Corpuscular Hemoglobin 28.8 pg (28.0-32.0); Mean Corpuscular Volume 87.0 fL (80.0-100.0); Nucleated Red Blood Cells % 0.1 %; Urine Protein, UAD TRACE (Negative)
[2025-08-31 11:40] LABS: Alanine Aminotransferase 34 U/L (7-40); Albumin 4.6 g/dL (3.2-4.8); Alkaline Phosphatase 71 U/L (46-116); Anion Gap 10 (5-15); BUN/Creatinine Ratio 15.9 (10.0-20.0); Blood Urea Nitrogen 18 mg/dL (9-23); Calcium 9.7 mg/dL (8.7-10.4); Carbon Dioxide 29 mmol/L (20-31); Chloride 104 mmol/L (98-107); Cholesterol 166 mg/dL (< 200); Glucose 94 mg/dL (74-106); Potassium 4.4 mmol/L (3.5-5.1); Sodium 143 mmol/L (136-145); Total Protein 7.8 g/dL (5.7-8.2); Triglycerides 85 mg/dL (< 150)
[2025-08-31 11:44] LABS: Bilirubin, Direct 0.4 mg/dL (<0.3); Bilirubin, Total 1.4 mg/dL (0.2-1.0); HDL Cholesterol 35 mg/dL (40-59)
== END 2025-08-31 17:00 | disposition home or self-care (01) ==
LOC: LAB 10:38
PROVIDERS: ATTEND Internal Medicine
DX: C61 Malignant neoplasm of prostate (principal); I10 Essential (primary) hypertension; E11.9 Type 2 diabetes mellitus without complications; E55.9 Vitamin D deficiency, unspecified; D64.9 Anemia, unspecified; R00.2 Palpitations
CPT/HCPCS: 36415; 80053; 80061; 80076; 81003; 83036; 84153; 84403; 84443; 85025

== ENCOUNTER 2025-09-09 11:07 | Outpatient (CLI) | payer MEDICAID | END 2025-09-09 17:00 | disposition home or self-care (01) | LOC: Rad HDHVI 11:07 | PROVIDERS: ATTEND Internal Medicine Cardiovascular Disease | DX: I08.1 Rheumatic disorders of both mitral and tricuspid valves (principal); I11.0 Hypertensive heart disease with heart failure; I50.23 Acute on chronic systolic (congestive) heart failure | CPT/HCPCS: 93306 ==